=== PATIENT | male | born 1995 | race Caucasian/White ===

== ENCOUNTER 2018-05-31 09:48 | Day surgery (SDC) | payer OTHER ==
[2018-05-26 14:34] VITALS: BMI 29.4
[2018-05-31] MEDS ORDERED: Dexamethasone 20 MG/5 ML VIAL ONE (10:06)
[2018-05-31] MEDS ORDERED: PROPOFOL 200 MG/20 ML VIAL ONE (10:06)
[2018-05-31] MEDS ORDERED: Ketorolac Tromethamine 30 MG/ML VIAL ONE (10:06)
[2018-05-31] MEDS ORDERED: Lidocaine 1% PF 5 ML VIAL ONE (10:06)
[2018-05-31] MEDS ORDERED: Ondansetron PF 4 MG/2 ML Vial ONE (10:06)
[2018-05-31] MEDS ORDERED: CEFAZOLIN 2 GM/50 ML BAG ONE (10:12)
[2018-05-31] MEDS ORDERED: Fentanyl 100 MCG/2 ML VIAL ONE ×3 (10:23→12:21)
[2018-05-31] MEDS ORDERED: Midazolam HCl 2 mg/2 ml Vial ONE (10:23)
[2018-05-31] MEDS ORDERED: HYDROmorphone 2 MG/ML VIAL ONE (12:29)
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
[2018-05-31] MEDS ORDERED: Bupivacaine HCl 0.5%/Epinephrine 1:200,000/PF 30 ml Vial ONE (16:45)
--- NOTE | 2018-05-31 22:09 | RAD ---
RIGHT ANKLE THREE VIEW SERIES 05/31/18 INDICATION: Operative fixation, ORIF right ankle. FINDINGS/IMPRESSION: Fixation of the mid the mid to distal fibula is present. There is a corticated screw traversing the m edial malleolus. Alignment is near anatomic. Intraoperative fluoroscopic imaging for fracture fixation of the distal tibia and fibula. POS: INDU
== END 2018-05-31 14:32 | disposition home or self-care (01) ==
LOC: SDC 09:48
PROVIDERS: ATTEND Orthopaedic Surgery
PROC: 0QSG04Z Reposition Right Tibia with Internal Fixation Device, Open Approach (ICD-10-PCS; principal; 2018-05-31)
PROC: 0QSJ04Z Reposition Right Fibula with Internal Fixation Device, Open Approach (ICD-10-PCS; principal; 2018-05-31)
DX: S82.841A Displaced bimalleolar fracture of right lower leg, initial encounter for closed fracture (principal); W30.89XA Contact with other specified agricultural machinery, initial encounter; Y99.0 Civilian activity done for income or pay
CPT/HCPCS: 76000; C1713; J0670; J1100; J1170; J1885; J2001; J2250; J2405; J2704; J3010